=== PATIENT | male | born 1965 | race Caucasian/White ===

== ENCOUNTER 2024-09-13 07:33 | Inpatient (IN) | payer OTHER, SELFPAY ==
[2024-09-11] VITALS (10 sets, daily range): BP systolic 102–131; BP diastolic 62–90; BMI 28.2; BMI 28.7
--- NOTE | 2024-09-11 14:44 | PTCARENOTE ---
Report given to Magda CROUCH at 1445.
[2024-09-11] MEDS: TYLENOL 1000 MG PO (16:49)
--- NOTE | 2024-09-11 18:53 | OR.RPT ---
Operative Report
Operative Report
Date
September 11, 2024
Anesthesia Type:
General
Operative Indications:
Right shoulder wound/abscess
Operative Findings :
Draining sinus medial to the intact pectoralis tendon insertion at the muscle tendon junction, intact pec tendon repair
Complications:
None
Implants:
None
Procedure and Technique:
Irrigation debridement right shoulder, sharp excision utilized
INDICATIONS FOR PROCEDURE:
Patient is a 59-year-old active male who is approximately 10 months status post right pec tendon repair. His postop recovery was uneventful. He rehabbed appropriately was able to return to an active lifestyle. About a month ago he developed some
atraumatic swelling and fluctuance adjacent to his surgical incision. This spontaneously began to drain. MRI showed fluid collection tracking along the pectoralis tendon as well as into the subdeltoid space. Patient was not complaining of any
pain and was relatively asymptomatic. I had a discussion regarding diagnosis and treatment options. Patient elected to proceed without surgical intervention initially trialed course of oral antibiotics. He had persistent drainage and ultimately
elected to proceed with surgical intervention. We discussed risks benefits and alternatives of surgery. We discussed the usual expected perioperative postoperative course. After discussion written informed consent was obtained
OPERATIVE PROCEDURE:
Patient was seen identified the preoperative holding area. Operative site was marked. All questions were addressed and answered. He was taken to the operating room where general anesthesia was administered. Operative extremity was prepped and
draped in normal sterile fashion. Timeout was performed again identifying the correct operative extremity. Antibiotics were held for cultures. Previous deltopectoral incision was utilized. Incision and wound measured approximately 6 cm in
length. There was noted to be sinus wound medial to previous incision in the axilla. Previous deltopectoral incision was utilized and sharp dissection was carried through skin subcutaneous tissues. Blunt dissection was carried through the
deltopectoral interval. There was an egress of murky fluid. Cultures were obtained. Tissue specimen was sent for cultures as well. At this point Ancef was given the patient. Approximate 3 L normal saline solution was utilized then to copiously
irrigate the wound. Blunt dissection was carried into the subdeltoid space with additional egress of fluid. The pectoralis tendon was identified palpated and found to be intact. There was noted to be sinus tract medial to the pectoralis tendon
insertion at the muscle tendon junction. Devitalized tissue was sharply excised utilizing knife as well as rongeur. Debridement was performed of sinus tract, subcutaneous tissues as well as tendon and muscle. The sinus tract was excised.
Satisfied with extent surgery wound was closed utilizing 2-0 PDS suture subcutaneous layer. The sinus tract was incorporated into the incision in a curvilinear fashion. Skin was closed utilizing 3-0 nylon suture mattress simple configuration.
Sterile dressing was applied. Anesthesia was reversed and patient was taken to PACU in stable condition. Postoperative plans include overnight admission with consultation to infectious disease for IV antibiotics. Plan to see patient back 2 weeks
postop.
Disposition:
PACU stable condition
[2024-09-11] MEDS: DILAUDID 0.25 MG IV (19:08)
--- NOTE | 2024-09-11 20:00 | PTCARENOTE ---
Pt arrived from PACU to [facility] on a stretcher at 1945. Pt walked from stretcher to bed with assistance. Pt has aquacell on Right shoulder with a sling. Pt is WBAT in sling. Admission questions answered. Bed locked and in lowest position. Pt oriented
to room and call jones. Care ongoing.
[2024-09-11] MEDS: COLACE 100 MG PO (21:23)
[2024-09-11] MEDS: NSS 1000 IV (21:24)
[2024-09-11] MEDS: ROCEPHIN 2000 MG IV (21:36)
[2024-09-11] MEDS: STERILE WATER FOR INJECTION 20 ML IV (21:37)
[2024-09-12 03:05] VITALS: BP 109/70
[2024-09-12] MEDS: NSS 1000 IV (06:38)
--- NOTE | 2024-09-12 07:37 | W.PN.ORTHO ---
Today's Communication / Plan
-
59-year-old male postop day 1 status post I&D right shoulder wound
Weightbearing as tolerated right upper extremity in sling
DVT prophylaxis: Mechanical/ambulation
Continue IV ceftriaxone
ID consult pending. Tentative plans for 6 weeks of IV antibiotics per discussion previously with ID
Pain control
Plan: Discharge home pending IV consultation
Subjective
.
.:
Patient resting comfortably this morning reports no pain.
Vital Signs and Labs
.
Vital Signs and Labs:
Temp Pulse Resp BP Pulse Ox
97.9 F 75 17 109/70 97
09/12/24 03:05 09/12/24 03:05 09/12/24 03:05 09/12/24 03:05 09/12/24 03:05
Physical Exam
-
Musculoskeletal right upper extremity
Dressing without significant bloody drainage
Sling in place
Sensation intact to light touch in all distributions distally including axillary nerve with proximally
Motor grossly intact all distributions distally
Brisk cap refill
[2024-09-12 07:50] VITALS: BP 100/64
--- NOTE | 2024-09-12 08:50 | CM ---
Addendum entered by Pamela Barnes RN 09/12/24 14:49:
CM sent prescription to [facility] for insurance review. Patient will not be able to have a SOC until 09/14. CM is pending PICC line information as well. CM updated ID, orthopedics and bedside RN.
Original Note:
CM met with patient in room. Cm discussed home IV antibiotics. Patient stated that he was worried about the duration because he has a business trip coming up. CM stated that ID has yet to evaluate patient and will move forward with recommendations.
CM updated bedside RN.
CM sent preliminary referral to [facility]. CM left message for Elisabeth at [facility] to update on referral.
PLAN: Pending ID recommendations.
[2024-09-12] MEDS: COLACE 100 MG PO ×2 (10:17→21:54)
[2024-09-12 11:05] VITALS: BP 127/75
--- NOTE | 2024-09-12 12:25 | CON.ID ---
Consultation
-
Date/Time Consultation Requested: 09/11/24 19:37
Date/Time Consultation Performed: 09/12/24 12:44
Requesting Provider: Dr Marian
Performing Provider: Dr Hirsch
Reason for Consultation: IV antibiotics
Chief Complaint / Past History
Chief Complaint
Draining sinus
History of Present Illness
Mr Acosta is a 59 year old male presenting at about 10 months s/p right pectoralis tendon repair; he initially recovered then about 1 month prior to admission he developed atraumatic swelling and fluctuance adjacent to the surgical site which later
opened and began to drain spontaneously copious amounts of yellow to cloudy fluid. An outpatient MRI was done showing a fluid collection along the pectoralis tendon and into the subdeltoid space. He denied pain, fevers chills. He started loosing
weight about 1.5 years ago with both decreased appetite and change in diet. This was started about 8 months before his original surgery. He has not discussed this with a doctor. He saw his orthopedist; took a course of oral cephalosporin without
improvement, it was decided to proceed with surgical intervention. He was electively admitted 09/11 and taken to the OR where a snius tract aas found to be medial to the pec tendon insertion, devitalized tissue was dissected, there was murky fluid
that was obtained and sent for culture, tissue specimen was also sent for culture, then ancef was given. the subdeltoid space also had fluid. Post operatively the patient has remained afebrile, bp stable, no labs have been drawn, note that last
available Cr from 2020 was 2.0 in the setting of a renal stone; review of [facility] did not show previous labs either, 09/11 OR cultures reviewed gram stains negative, patient is on ceftriaxone 2 gm iv q24 hours at my recommendation.
Past History
Additional Past Medical History:
no reported history
Additional Past Surgical History:
as per hpi
Allergy History:
No Known Allergies Allergy (Unverified 09/11/24 14:24)
Medications Reviewed: Yes
Social History
Tobacco: Non-Smoker
Alcohol: None
Drug: None
Family History
Family History: Not Pertinent
Review of Systems
Review of Systems
General: Negative Fever or Chills
All systems: All other systems were reviewed and were negative
Vital Signs
Temp Pulse Resp BP Pulse Ox
98.2 F 68 16 127/75 98
09/12/24 11:05 09/12/24 11:05 09/12/24 11:05 09/12/24 11:05 09/12/24 11:05
Physical Exam
Physical Exam
Constitutional: No Acute Distress
Cardiovascular: Regular Rate and S1/S2; Negative Murmur or Rub
Pulmonary: Clear and Symmetric; Negative Wheezes, Rales or Rhonchi
Gastrointestinal: Soft, Non Tender, Non Distended and Normal Bowel Sounds
Skin: Warm and Dry; Negative Rash or Jaundice
Wound: Other (surgical dressing clean, dry, intact)
Microbiology Results
Micro:
09/11/24 17:52 Tissue Culture - Preliminary
Shoulder - Right NO GROWTH
Gram Stain - Preliminary
09/11/24 17:52 Anaerobic Culture - Preliminary
Shoulder - Right Culture pending. Anaerobic cultures are examined after 3
days incubation. Additional information to follow.
09/11/24 17:52 Wound Culture - Preliminary
Shoulder - Right No growth
Gram Stain - Preliminary
Assessment / Plan
R should tendon infection +/- osteomyelitis
- appreciated OR tissue culture being obtained which may have greater yield
- will follow all OR cultures, asked lab to hold these to two weeks including the anaerobic culture
- overall clinical picture is suspicious for P acnes
- PICC line placement
- continue ceftriaxone 2 gm iv q24 through 10/22 - 6 week course
- weekly labs to be sent to ID office while on OPAT (outpatient IV antibiotics)
- follow up in ID clinic in 5-6 weeks
- stable for DC from ID perspective when OPAT arranged - script provided to CM and copy sent to my office 09/12
Unintentional Weight Loss - about 50 lbs
- began about 8 months before his initial shoulder operation
- recommend follow up with PCP for assessment including getting up to date on routine cancer screenings
Care Review
Plan reviewed with: Laboratory (hold cultures to 2 weeks)
[2024-09-12 13:31] LABS: % Basophils 0.2 % (0-2); % Eosinophils 0.5 % (0-6); % Immature Granulocytes 0.2 % (0-0.5); % Lymphocytes 18.7 % (20.5-51.1); % Neutrophils 72.4 % (42.2-75.2); Absolute Lymphocytes 1.5 10^3/uL (1.2-3.4); Absolute Monocytes 0.7 10^3/uL (0.1-0.6); Absolute Neutrophils 5.9 10^3/uL (1.4-6.5); Hematocrit 35.5 % (39.0-52.0); Hemoglobin 11.6 g/dL (13.0-18.0); Mean Corp Hgb Conc. 32.7 g/dL (33.0-37.0); Mean Corpuscular Hgb 26.7 pg (27.0-31.0); Mean Corpuscular Volume 81.6 fL (80.0-94.0); Mean Platelet Volume 8.9 fL (7.4-10.4); Nucleated Red Blood Cells % 0 % (-); Platelet Count 363 10^3/uL (130-400); Red Blood Cell Count 4.35 10^6/uL (4.70-6.10); Red Cell Dist. Width 14.2 % (11.5-14.5); White Blood Cell Count 8.1 10^3/uL (4.8-10.8)
[2024-09-12 13:42] LABS: ALT (SGPT) 21 U/L (0-50); AST (SGOT) 20 U/L (17-59); Albumin 3.3 g/dl (3.5-5.0); Alkaline Phosphatase 100 U/L (38-126); Blood Urea Nitrogen 15 mg/dl (9-20); Calcium 9.6 mg/dl (8.4-10.2); Carbon Dioxide 28 mmol/L (22-30); Chloride 104 mmol/L (98-107); Estimated Creatinine Clearance 92 ml/min; Glucose 92 mg/dl (70-99); Potassium 4.3 mmol/L (3.5-5.1); Sodium 140 mmol/L (135-145); Total Bilirubin 0.7 mg/dl (0.2-1.3); Total Protein 6.4 g/dl (6.3-8.2); eGFR > 60.00
[2024-09-12 14:33] LABS: Erythrocyte Sed Rate 50 mm/hour (0-20)
[2024-09-12 15:10] VITALS: BP 130/80
[2024-09-12 19:14] VITALS: BP 126/72
[2024-09-12] MEDS: STERILE WATER FOR INJECTION 20 ML IV (21:54)
[2024-09-12] MEDS: ROCEPHIN 2000 MG IV (21:54)
[2024-09-12 23:15] VITALS: BP 115/73
[2024-09-13 03:05] VITALS: BP 124/76
[2024-09-13 07:15] VITALS: BP 121/74
--- NOTE | 2024-09-13 07:38 | W.PN.ORTHO ---
Today's Communication / Plan
-
59-year-old male postop day 2 status post irrigation debridement of left shoulder wound/fluid collection
Weightbearing as tolerated right upper extremity
Sling in place for comfort
DVT prophylaxis mechanical/ambulation
Dressing to remain in place 5 days
Ceftriaxone 2 g every 24 hours per infectious disease recommendations
PICC has been placed, awaiting patient education
Likely plan for discharge later today
Subjective
.
.:
Patient resting comfortably this morning. Reports no pain.
Vital Signs and Labs
.
Vital Signs and Labs:
Lab Results
09/12/24 13:19
09/12/24 13:19
Temp Pulse Resp BP Pulse Ox
98.5 F 65 16 124/76 96
09/13/24 03:05 09/13/24 03:05 09/13/24 03:05 09/13/24 03:05 09/13/24 03:05
Physical Exam
-
Musculoskeletal right upper extremity
Dressing clean dry intact without evidence of drainage
Sling in place
No motor or sensory deficits noted on examination
[2024-09-13] MEDS: COLACE 100 MG PO (08:54)
--- NOTE | 2024-09-13 09:23 | CM ---
Addendum entered by Pamela Barnes RN 09/13/24 11:16:
CM confirmed via Elisabeth at [facility] that patient will have a delivery this evening of medications. Patient will be seen in the [facility] outpatient infusion Center on 09/14 for teaching. Plan to flex patient's antibiotics to 6pm and discharge
after.
CM updated bedside RN.
PLAN: [facility].
Addendum entered by Pamela Barnes RN 09/13/24 09:54:
CM updated patient with on going discharge plans.
Original Note:
CM contacted [facility] to confirm IV antibiotic arrangements.
[2024-09-13 11:05] VITALS: BP 116/87
[2024-09-13 15:20] VITALS: BP 126/81
--- NOTE | 2024-09-13 15:34 | W.PN.ID1 ---
Date of Service
Date of Service: September 13, 2024
Today's Communication
- continue ceftriaxone 2 gm iv q24 through 10/22 - 6 week course; retimed to 6PM to facilitate discharge
- weekly labs to be sent to ID office while on OPAT (outpatient IV antibiotics)
- follow up in ID clinic in 5-6 weeks
Assessment / Plan
R should tendon infection +/- osteomyelitis
- appreciated OR tissue culture being obtained which may have greater yield
- will follow all OR cultures, asked lab to hold these to two weeks including the anaerobic culture
- overall clinical picture is suspicious for P acnes
- PICC line placement
- continue ceftriaxone 2 gm iv q24 through 10/22 - 6 week course; retimed to 6PM to facilitate discharge
- weekly labs to be sent to ID office while on OPAT (outpatient IV antibiotics)
- follow up in ID clinic in 5-6 weeks
- stable for DC from ID perspective when OPAT arranged - script provided to CM and copy sent to my office 09/12
Unintentional Weight Loss - about 50 lbs
- began about 8 months before his initial shoulder operation
- recommend follow up with PCP for assessment including getting up to date on routine cancer screenings
Chief Complaint
-: Other (possible osteomyelitis)
Subjective / Review of Systems
afebrile
bp stable
will have OPAT set up
Vital Signs / Physical Exam
Vital Signs
Vital Signs
Temp Pulse Resp BP Pulse Ox
97.9 F 85 18 116/87 96
09/13/24 11:05 09/13/24 11:05 09/13/24 11:05 09/13/24 11:05 09/13/24 11:05
Physical Exam
Constitutional: No Acute Distress
Cardiovascular: Regular Rate and S1/S2; Negative Murmur or Rub
Pulmonary: Clear and Symmetric; Negative Wheezes or Rales
Gastrointestinal: Soft, Non Tender, Non Distended and Normal Bowel Sounds
Skin: Warm and Dry; Negative Rash or Jaundice
Lines: PICC
Objective Data
Lab Data
Lab Results
09/12/24 13:19
09/12/24 13:19
ESR 50 mm/hour (0-20) H 09/12/24 13:19
Estimated Creat Clear 92 ml/min 09/12/24 13:19
Total Bilirubin 0.7 mg/dl (0.2-1.3) 09/12/24 13:19
AST 20 U/L (17-59) 09/12/24 13:19
ALT 21 U/L (0-50) 09/12/24 13:19
Alkaline Phosphatase 100 U/L (38-126) 09/12/24 13:19
C-Reactive Protein 29.90 mg/L (0.0-10.00) H 09/12/24 13:19
Most recent labs reviewed.
Micro Results:
09/11/24 17:52 Anaerobic Culture - Preliminary
Shoulder - Right Culture pending. Anaerobic cultures are examined after 3
days incubation. Additional information to follow.
09/11/24 17:52 Wound Culture - Preliminary
Shoulder - Right No growth
Gram Stain - Preliminary
09/11/24 17:52 Tissue Culture - Preliminary
Shoulder - Right No Growth After 48 Hours
Gram Stain - Preliminary
--- NOTE | 2024-09-13 17:31 | W.DCSUMMARY ---
Discharge Summary
Discharge Data
Date of Admission: 09/13/24
Date of Discharge: 09/13/24
-
Pending Results: No
Hospital Course
59-year-old male about 10 months status post right pectoralis tendon repair. About 1 month ago he presented with fluctuance and ultimately spontaneous drainage medial to his incision. MRI showed large fluid collection tracking along the pectoralis
major tendon as well as the subdeltoid space. Patient opted for initial conservative treatment. Despite oral antibiotics, he had persistent drainage. Ultimately elected to proceed with surgical intervention form of surgical irrigation
debridement. Responses alternatives discussed informed consent was obtained
Patient was taken to the operating room on 09/11/2024. He underwent surgical irrigation debridement copious saline solution. Cultures were obtained. He was admitted to the hospital for placement of PICC line and initiation of IV antibiotics. He
was seen by infectious disease who recommended initial antibiotics consisting of 2 g ceftriaxone daily. PICC line was placed and he was set up for outpatient infusion. Patient was discharged stable condition home. I will plan to see patient back
in the office in 10 days for wound check. Will certainly update patient with any culture data although I do suspect likely p acnes.
Discharge Plan
-
Patient Disposition: Home (Routine Discharge)
Discharge Diagnosis/Procedures: R shoulder abscess/wound
Condition: Good
Diet: As tolerated
Activity: No strenuous activity
Additional Activity: WBAT RUE, sling for comfort
Driving Restrictions: Not until seen by your Dr
Bathing Restrictions: After dressing removed
Wound Care: Keep dressing on for 5 days post op, OK to shower after dressing removal, please keep covered until follow up
Referrals:
UNKNOWN - PT DOES,NOT KNOW [Family Provider] -
Prescriptions:
No Action
No Current Medications
0
Discharge Orders:
Discharge Patient (As Directed); Ordered 09/13/24
Ordered By: Niels Marina
Discharge Date and Time
Print Language: WELSH
[2024-09-13] MEDS: STERILE WATER FOR INJECTION 20 ML IV (17:55)
[2024-09-13] MEDS: FLUSH (NSS) 2 FLUSH IV (17:56)
[2024-09-13] MEDS: ROCEPHIN 2000 MG IV (17:56)
== END 2024-09-13 17:50 | disposition home or self-care (01) | DRG 857 ==
LOC: 2 SOUTH 07:33
PROVIDERS: Radiology Diagnostic Radiology; Student in an Organized Health Care Education/Training Program; ADMITTING PHYSICIAN Orthopaedic Surgery
PROC: 0KB70ZZ Excision of Right Upper Arm Muscle, Open Approach (ICD-10-PCS; 2024-09-11)
PROC: B5181ZA Fluoroscopy of Superior Vena Cava using Low Osmolar Contrast, Guidance (ICD-10-PCS; 2024-09-12)
PROC: 02HV33Z Insertion of Infusion Device into Superior Vena Cava, Percutaneous Approach (ICD-10-PCS; 2024-09-12)
DX: T81.42XA Infection following a procedure, deep incisional surgical site, initial encounter (principal); L02.413 Cutaneous abscess of right upper limb; Y83.4 Other reconstructive surgery as the cause of abnormal reaction of the patient, or of later complication, without mention of misadventure at the time of the procedure
CPT/HCPCS: 71045; 80053; 85025; 85652; 86140; 87070; 87075; 87176; 87205

== ENCOUNTER 2024-09-16 08:13 | Emergency (ER) | payer OTHER, SELFPAY ==
[2024-09-16 08:17] VITALS: BP 125/79
--- NOTE | 2024-09-16 09:02 | ED.GENMED ---
History of Present Illness
General
Chief Complaint: Post Operative Problem(s)
Source: patient
Exam Limitations: none
Time Seen by Provider: 09/16/24 08:51
History of Present Illness
History of Present Illness:
59-year-old male had surgery on 09/13 for abscess status post previous surgery to the right shoulder. Currently receiving IV antibiotics. PICC line left arm. No fever chills no increasing pain. Bleeding started 3 days ago. Mild until this morning
when it was more severe. Currently back down.
Past History
Past History
ED Past Medical History: None
ED Past Surgical History: Orthopedic
Social History
Personal:
Living: with family
Review of Systems
Review of Systems
All Other Systems: Not applicable
Constitutional: Denies fever or chills
Phy Exam
Physical Exam
Physical Exam:
General: Nontoxic appearing in no distress
Skin: Warm and dry, no rash
Neuro: Alert, nontoxic, grossly nonfocal
Psychiatric: Good eye contact and appropriate
Musculoskeletal: PICC line left arm. Right shoulder with a dressing in place. Small amount of blood on the dressing. Very very small oozing blood from the right surgical site. No obvious hematoma. No erythema or warmth. No unusual drainage.
Course
Vital Signs
Initial and Last Documented VS:
Initial Vital Signs
Temp Pulse Resp BP Pulse Ox
97.8 F 65 16 125/79 98
09/16/24 08:17 09/16/24 08:17 09/16/24 08:17 09/16/24 08:17 09/16/24 08:17
Last Documented Vital Signs
Temp Pulse Resp BP Pulse Ox
97.8 F 65 16 125/79 98
09/16/24 08:17 09/16/24 08:17 09/16/24 08:17 09/16/24 08:17 09/16/24 08:17
MDM/Problems Addressed
Differential Diagnosis Includes:
Site appears well. Nothing to suspect infectious issue. Patient is nontoxic. Very small ooze or. I suspect he formed a small hematoma that with pressure this morning released. Local pressure and follow-up. Orthopedics contacted.
*Pulse Oximetry
Patient hypoxic: no
*Critical Care Note
Total Time (30-74mins, 75-104mins- exclusive of procedures): Not Applicable
Data Reviewed
Review of Other/Old Records Reveals: Labs and Operative Reports
Update Note
Update Note:
Recheck. Pressure wrap is doing well. No active bleeding. Will be extra careful with this and just leave it on for 3 to 4 hours
ED Attending Note
-
Portions of this chart may have been created with voice recognition software.� Occasional wrong word or��sound alike� substitutions may have occurred due to the inherent limitations of voice recognition software.
Discharge Plan
Departure
Patient Disposition: Home (Routine Discharge)
Date of Disposition: 09/16/24
Time of Disposition: 09:40
Patient with high blood pressure during this ER visit?: Yes
Discharge Problem:
Postoperative surgical bleeding
Instructions: Bleeding After Surgery, BLOOD PRESSURE
Prescriptions:
No Action
No Current Medications
0
Referrals:
David Cardenas MD [Family Provider] -
Activity Restrictions/Additional Instructions:
Call the orthopedist first thing tomorrow morning
Leave this tighter wrap on for 3 to 4 hours then change back to your standard dressing with a small 4 x 4 folded underneath to add some extra pressure
Try not to move the arm much the next 3 to 4 hours
Interventions
Interventions:
*Risk Screen - Suicide Last Done: 09/16/24 08:17
*Neglect/Abuse Screening Last Done: 09/16/24 08:17
*Nursing Disposition Last Done: 09/16/24 09:55
ED-Skin Assessment Last Done: 09/16/24 09:09
Discharge Date and Time
Discharge Date/Time: 09/16/24 09:57
Print Language: SYRIAN
== END 2024-09-16 09:57 | disposition home or self-care (01) ==
LOC: EMR 08:13
PROVIDERS: EMERGENCY PHYSICIAN Emergency Medicine; FAMILY PHYSICIAN Family Medicine
DX: L76.22 Postprocedural hemorrhage of skin and subcutaneous tissue following other procedure (principal); Y83.8 Other surgical procedures as the cause of abnormal reaction of the patient, or of later complication, without mention of misadventure at the time of the procedure; R03.0 Elevated blood-pressure reading, without diagnosis of hypertension
CPT/HCPCS: 99282

== ENCOUNTER → 2024-09-25 07:52 | Outpatient (REF) | payer OTHER, SELFPAY | LOC: WOUND 07:52 | PROVIDERS: ATTENDING PHYSICIAN Surgery | DX: T81.41XA Infection following a procedure, superficial incisional surgical site, initial encounter (principal); S41.001A Unspecified open wound of right shoulder, initial encounter; A49.8 Other bacterial infections of unspecified site; Y83.8 Other surgical procedures as the cause of abnormal reaction of the patient, or of later complication, without mention of misadventure at the time of the procedure; X58.XXXA Exposure to other specified factors, initial encounter | CPT/HCPCS: 11042; 99203 ==

== ENCOUNTER → 2024-10-04 09:56 | Outpatient (REF) | payer OTHER, SELFPAY | LOC: WOUND 09:56 | PROVIDERS: ATTENDING PHYSICIAN Surgery | DX: T81.41XA Infection following a procedure, superficial incisional surgical site, initial encounter (principal); S41.001A Unspecified open wound of right shoulder, initial encounter; A49.8 Other bacterial infections of unspecified site; Y83.8 Other surgical procedures as the cause of abnormal reaction of the patient, or of later complication, without mention of misadventure at the time of the procedure; X58.XXXA Exposure to other specified factors, initial encounter | CPT/HCPCS: 11042 ==

== ENCOUNTER → 2024-10-11 09:29 | Outpatient (REF) | payer OTHER, SELFPAY | LOC: WOUND 09:29 | PROVIDERS: ATTENDING PHYSICIAN Surgery | DX: T81.41XA Infection following a procedure, superficial incisional surgical site, initial encounter (principal); S41.001A Unspecified open wound of right shoulder, initial encounter; A49.8 Other bacterial infections of unspecified site; Y84.8 Other medical procedures as the cause of abnormal reaction of the patient, or of later complication, without mention of misadventure at the time of the procedure; X58.XXXA Exposure to other specified factors, initial encounter | CPT/HCPCS: 99213 ==

== ENCOUNTER → 2024-10-19 13:52 | Outpatient (REF) | payer OTHER, SELFPAY | LOC: WOUND 13:52 | PROVIDERS: ATTENDING PHYSICIAN Surgery; FAMILY PHYSICIAN Family Medicine | DX: T81.41XA Infection following a procedure, superficial incisional surgical site, initial encounter (principal); S41.001A Unspecified open wound of right shoulder, initial encounter; A49.8 Other bacterial infections of unspecified site; X58.XXXA Exposure to other specified factors, initial encounter | CPT/HCPCS: 99213 ==

== ENCOUNTER 2024-11-02 06:14 | Day surgery (SDC) | payer OTHER, SELFPAY ==
[2024-11-02] VITALS (11 sets, daily range): BP systolic 121–158; BP diastolic 72–103; BMI 30.2
[2024-11-02] MEDS: NORMOSOL-R/PLASMALYTE-A 1000 IV (09:23)
[2024-11-02] MEDS: TYLENOL 1000 MG PO (09:23)
--- NOTE | 2024-11-02 12:35 | OR.RPT ---
Operative Report
Operative Report
Date
November 02, 2024
Anesthesia Type:
General
Operative Indications:
Right shoulder wound/persistent sinus drainage
Operative Findings :
No gross purulence noted, there was some bloody murky fluid notable particularly in the subdeltoid space. There was some friable tissue at the pectoralis tendon insertion, majority of pec tendon was found to be intact
Complications:
None
Implants:
None
Procedure and Technique:
Irrigation and debridement right shoulder, removal of deep implant, placement of wound VAC
INDICATIONS FOR PROCEDURE:
Patient is a 59-year-old active male who underwent elective pectoralis tendon repair last summer right side. He did well postoperatively.. He developed swelling and spontaneous drainage adjacent to his surgical incision axillary fold. MRI was
performed that showed significant fluid collection. He underwent a previous irrigation debridement wound cultures that were positive for C avidum. A PICC line was placed and he did undergo 6 weeks of IV antibiotics. He had persistent drainage
however. He was evaluated by wound care and failed conservative treatment. Given his persistent drainage and failure of IV antibiotics, we discussed treatment options at length. Ultimately he elected to proceed with repeat irrigation debridement.
We discussed risks benefits and alternatives to surgery. Discussed the usual expected perioperative postoperative course. After discussion written informed consent was obtained
OPERATIVE PROCEDURE:
Patient was seen identified in the preoperative holding area. Operative extremity was marked. All questions were addressed and answered. He was taken to the operating room where general anesthesia was administered. Operative extremities prepped
and draped in normal sterile fashion. Timeout was performed again identifying the correct operative extremity. Antibiotics were held for culture. Previous deltopectoral incision was utilized and lengthened. The size of the wound was
approximately 8 cm. Sharp dissection was carried through skin subcutaneous tissues. Skin flaps were raised. Blunt dissection was carried down through the deltopectoral interval pectoralis tendon was identified and followed to its insertion
lateral to the bicipital groove. There was notably suture tape as well as 2 buttons that were then removed. Buttons had pulled out through the bone. Copious irrigation was performed and with approximate 3 L normal saline solution. Sharp
excisional debridement was performed with the use of a rongeur curette Bovie and knife. All friable nonviable tissue was excised. There was notable friable tissue at the insertion of the pectoralis tendon. However the majority of the pec tendon
was intact. Cultures were sent both fluid as well as specimen. Bone from the previous site of repair was also sent for culture and to evaluate for osteomyelitis. After this specimen was obtained, antibiotics were given after irrigation
debridement was performed, wound was closed in a layered fashion utilizing 2-0 Monocryl for subcutaneous layer and 3-0 nylon for skin. Attention was then turned to draining sinus tract. The sinus tract was ellipsed and sharply debrided back to
bleeding skin edges. Rongeur was utilized to debride subcutaneous scar tissue. Additional irrigation was performed. This wound was then closed in layered fashion utilizing 2-0 Monocryl suture for subcutaneous layer 3-0 nylon suture for skin.
Red wound VAC dressing was then applied. Anesthesia was reversed and patient was taken to PACU in stable condition. Postoperative plans include nonweightbearing right upper extremity in sling. Continue with wound VAC. Will send oral antibiotics
as well to be taken.
Disposition:
PACU stable condition
[2024-11-02] MEDS: DILAUDID 0.25 MG IV ×2 (12:53→13:08)
== END 2024-11-02 16:00 | disposition home or self-care (01) ==
LOC: SDS 06:14
PROVIDERS: ATTENDING PHYSICIAN Orthopaedic Surgery
DX: L02.413 Cutaneous abscess of right upper limb (principal); Z96.9 Presence of functional implant, unspecified
CPT/HCPCS: 23030; 20680; 87070; 87075; 87147; 87176; 87186; 87205